=== PATIENT | female | born 1980 | race Caucasian/White ===

== ENCOUNTER 2025-01-04 10:15 | Emergency (ER) | payer BC ==
[~2025-01-04] VITALS: Ht 167.6 cm; Wt 70.0 kg
[2025-01-04] MEDS: OLANZAPINE 5MG TABLET ODT PO ONE (10:44)
[2025-01-04] MEDS: LORAZEPAM 1MG TABLET PO ONE (10:44)
[2025-01-04] MEDS: TETANUS, DIPHTHERIA, PERTUSSIS VAC/PF 0.5ML (>10YR OLD) IM ONE (10:45)
[2025-01-04] MEDS: LIDOCAINE HCL/EPINEPHRINE 1%-EPI 1:100,000 20ML VIAL INFIL ONE (11:01)
[2025-01-04 11:45] LABS: BASOPHILS % 0.7 % (0.0-2.0); EOSINOPHILS % 2.9 % (0.0-5.0); HEMATOCRIT. 37.6 % (36.0-48.0); HEMOGLOBIN. 12.6 g/dL (12.0-16.0); LYMPHOCYTES % 28.5 % (20.0-50.0); MEAN CORPUSCULAR HEMOGLOBIN 32.7 pg (28.0-32.0); MEAN CORPUSCULAR HGB CONC 33.5 g/dL (31.0-37.0); MEAN CORPUSCULAR VOLUME 97.6 fL (81.0-99.0); MEAN PLATELET VOLUME 6.6 fl (7.4-10.4); MONOCYTES % 9.1 % (2.0-8.0); NEUTROPHILS % 58.8 % (40.0-76.0); PLATELET 152 x1000/uL (130-400); RED BLOOD CELL COUNT 3.85 mill/uL (4.2-5.4); RED CELL DISTRIBUTION WIDTH 18.5 % (11.6-14.6); WHITE BLOOD COUNT 3.6 x1000/uL (4.5-11.0)
[2025-01-04 11:52] LABS: CHLORIDE 106 mEq/L (98-107); POTASSIUM 4.2 mEq/L (3.5-5.1); SODIUM 146 mEq/L (136-145)
[2025-01-04 11:53] LABS: CALCIUM 8.7 mg/dL (8.7-10.4); CARBON DIOXIDE 30 mEq/L (21-32)
[2025-01-04 11:57] LABS: UREA NITROGEN BLOOD 9 mg/dL (9-23)
[2025-01-04 11:58] LABS: CREATININE 0.7 mg/dL (0.6-1.0); ETHANOL BLOOD 300 mg/dL (<10); GLUCOSE 104 mg/dL (70-105)
[2025-01-04 11:59] LABS: ALANINE AMINOTRANSFERASE 105 IU/L (10-49); ASPARTATE AMINOTRANSFERASE 184 IU/L (<34); HCG SCREEN NEGATIVE
[2025-01-04 12:00] LABS: ACETAMINOPHEN < 2 ug/mL (10-30); ALBUMIN 3.9 g/dL (3.2-4.8); BILIRUBIN DIRECT < 0.1 mg/dL (<=3.0); BILIRUBIN TOTAL 0.4 mg/dL (0.1-1.0); PROTEIN TOTAL 6.1 g/dL (6.0-8.3)
[2025-01-04] MEDS: MIDAZOLAM HCL 2 MG/2 ML VIAL IM ONE (12:02)
[2025-01-04 13:08] LABS: CLARITY URINE CLEAR (CLEAR); COLOR URINE YELLOW (YELLOW); GLUCOSE URINE NEGATIVE (NEGATIVE); KETONES URINE NEGATIVE (NEGATIVE); LEUKOCYTE ESTERASE URINE NEGATIVE (NEGATIVE); NITRITE URINE NEGATIVE (NEGATIVE); OCCULT BLOOD URINE NEGATIVE (NEGATIVE); PH URINE 5.5 (4.5-8.0); PROTEIN URINE NEGATIVE (NEGATIVE); SPECIFIC GRAVITY URINE 1.012 (1.005-1.030); UROBILINOGEN URINE 0.2 E.U./dL (0.2-1.0)
[2025-01-04 13:32] LABS: *AMPHETAMINES SCREEN URINE NEGATIVE (NEGATIVE); *BARBITURATES SCREEN URINE NEGATIVE (NEGATIVE); *BENZODIAZEPINES SCREEN URINE NEGATIVE (NEGATIVE); *COCAINE SCREEN URINE NEGATIVE (NEGATIVE); CANNABINOID URINE SCREEN NEGATIVE (NEGATIVE); ECSTASY MDMA SCREEN URINE NEGATIVE (NEGATIVE); METHADONE URINE SCREEN NEGATIVE (NEGATIVE); OPIATES URINE SCREEN NEGATIVE (NEGATIVE); PHENCYCLIDINE URINE SCREEN NEGATIVE (NEGATIVE)
[2025-01-04 14:00] VITALS: O2SAT 98
[2025-01-05] MEDS: FLUOXETINE HCL 20MG CAPSULE PO SCH (10:56)
[2025-01-05 14:02] VITALS: TEMP 36.6
[2025-01-05] MEDS: GABAPENTIN 300MG CAPSULE PO SCH (14:05)
[2025-01-05] MEDS: QUETIAPINE FUMARATE 50MG TABLET PO SCH (21:54)
[2025-01-06 12:11] VITALS: BP 116/64; PULSE 73; RESP 20; O2SAT 100
== END 2025-01-06 13:20 ==
LOC: ER 10:15
DX: S61.511A Laceration without foreign body of right wrist, initial encounter (principal); T14.91XA Suicide attempt, initial encounter; F10.129 Alcohol abuse with intoxication, unspecified; Z20.822 Contact with and (suspected) exposure to COVID-19; X83.8XXA Intentional self-harm by other specified means, initial encounter; Y93.89 Activity, other specified; Y92.89 Other specified places as the place of occurrence of the external cause; Y99.8 Other external cause status; Y90.8 Blood alcohol level of 240 mg/100 ml or more
CPT/HCPCS: 80076; 80305; 80048; 81003; 80307; 80329; 80320; 84703; 85025; 36415; 90715; 12002; 90471; 96372; 99291; 87426; J2004; J2250; Z7610 ×4; A6449; G0480